=== PATIENT | male | born 1995 | race American Indian/Alaskan Native ===

== ENCOUNTER 2019-03-10 18:55 | Emergency (ER) | payer OTHER ==
[2019-03-10 21:13] VITALS: BP 110/50
--- NOTE | 2019-03-10 23:59 | XRay Report ---
CLINICAL DATA: lower back pain TECHNICAL DATA: AP and lateral views lumbar spine. FINDINGS: The bone mineralization is normal. Vertebral body heights are normal. Intervertebral disc spaces are well maintained. Pedicles and spinous processes are normal in alignment. SI joints and sacrum are nor mal. IMPRESSION: Normal examination lumbar spine. Signer Name: Ramon Segura MD Signed: 03/10/2019 11:54 PM Workstation Name: [email or web address]
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
[2019-03-11] MEDS ORDERED: KETOROLAC 30 MG/1 ML INJ ONE (02:29)
[2019-03-11] MEDS ORDERED: KETOROLAC 30 MG/1 ML INJ IM ONE (02:32)
== END 2019-03-11 03:35 | disposition home or self-care (01) ==
LOC: ED 18:55
DX: S39.012A Strain of muscle, fascia and tendon of lower back, initial encounter (principal); F17.200 Nicotine dependence, unspecified, uncomplicated; F12.10 Cannabis abuse, uncomplicated; V49.59XA Passenger injured in collision with other motor vehicles in traffic accident, initial encounter; Y93.89 Activity, other specified; Y92.488 Other paved roadways as the place of occurrence of the external cause; Y99.8 Other external cause status
CPT/HCPCS: 72100; 96372; 99283; J1885

== ENCOUNTER 2020-01-24 05:48 | Emergency (ER) | payer SELFPAY ==
[2020-01-24 06:44] VITALS: BP 132/78
--- NOTE | 2020-01-24 08:32 | Emergency Department Report ---
ED ENT HPI - General Chief complaint: Sore Throat Stated complaint: THROAT HURTS/RO/PAIN IN LT EAR Time Seen by Provider: 01/24/20 07:51 Source: patient Mode of arrival: Ambulatory Limitations: No Limitations - History of Present Illness Initial comments: 24-year-old male with no significant past medical history presents to the ER today complaining of sore throat and left ear pain for 2 months. Patient states that he has not been seen by ENT nor any medical provider for his symptoms since it started. He reports increased pain with swallowing. He denies any rhinorrhea, nasal congestion, fever, chills or cough. He states he does suffer from seasonal allergies but currently not taking any medication. MD complaint: sore throat, ear pain -: month(s) (2) - Related Data Previous Rx's Medication Instructions Recorded Last Taken Type Menthol/Camphor [[place] 1 applicatio TP QID PRN #1 tube 03/11/19 Unknown Rx Ointment] Naproxen 500 mg PO BID PRN #30 tablet 03/11/19 Unknown Rx Clindamycin [Clindamycin CAP] 300 mg PO Q6H #40 capsule 01/24/20 Unknown Rx Loratadine/Pseudoephedrine 1 tab PO Q12H #20 tablet 01/24/20 Unknown Rx [Claritin-D 12HR] methylPREDNISolone [Medrol 4MG 4 mg PO DAILY #1 tab.ds.pk 01/24/20 Unknown Rx DOSEPAK (21 tabs)] Allergies Allergy/AdvReac Type Severity Reaction Status Date / Time No Known Allergies Allergy Verified 03/11/19 02:41 ED Dental HPI - General Chief complaint: Sore Throat Stated complaint: THROAT HURTS/RO/PAIN IN LT EAR Time Seen by Provider: 01/24/20 07:51 Source: patient Mode of arrival: Ambulatory Limitations: No Limitations - Related Data Previous Rx's Medication Instructions Recorded Last Taken Type Menthol/Camphor [[place] 1 applicatio TP QID PRN #1 tube 03/11/19 Unknown Rx Ointment] Naproxen 500 mg PO BID PRN #30 tablet 03/11/19 Unknown Rx Clindamycin [Clindamycin CAP] 300 mg PO Q6H #40 capsule 01/24/20 Unknown Rx Loratadine/Pseudoephedrine 1 tab PO Q12H #20 tablet 01/24/20 Unknown Rx [Claritin-D 12HR] methylPREDNISolone [Medrol 4MG 4 mg PO DAILY #1 tab.ds.pk 01/24/20 Unknown Rx DOSEPAK (21 tabs)] Allergies Allergy/AdvReac Type Severity Reaction Status Date / Time No Known Allergies Allergy Verified 03/11/19 02:41 ED Review of Systems ROS: Stated complaint: THROAT HURTS/RO/PAIN IN LT EAR Other details as noted in HPI Comment: All other systems reviewed and negative Constitutional: denies: chills, fever ENT: ear pain, throat pain Respiratory: denies: cough, orthopnea, shortness of breath, SOB with exertion, SOB at rest, wheezing Cardiovascular: denies: chest pain, palpitations Gastrointestinal: denies: abdominal pain, nausea, diarrhea Musculoskeletal: denies: back pain, joint swelling, arthralgia Skin: denies: rash, lesions Neurological: denies: headache, weakness, paresthesias Psychiatric: denies: anxiety, depression Hematological/Lymphatic: denies: easy bleeding, easy bruising ED Past Medical Hx - Past Medical History Previous Medical History?: No - Surgical History Past Surgical History?: No - Social History Smoking Status: Current Every Day Smoker Substance Use Type: None - Medications Home Medications: Home Medications Medication Instructions Recorded Confirmed Last Taken Type Menthol/Camphor [[place] 1 applicatio TP QID PRN #1 tube 03/11/19 Unknown Rx Ointment] Naproxen 500 mg PO BID PRN #30 tablet 03/11/19 Unknown Rx Clindamycin [Clindamycin CAP] 300 mg PO Q6H #40 capsule 01/24/20 Unknown Rx Loratadine/Pseudoephedrine 1 tab PO Q12H #20 tablet 01/24/20 Unknown Rx [Claritin-D 12HR] methylPREDNISolone [Medrol 4MG 4 mg PO DAILY #1 tab.ds.pk 01/24/20 Unknown Rx DOSEPAK (21 tabs)] ED Physical Exam - General Limitations: No Limitations General appearance: alert, in no apparent distress - Head Head exam: Present: atraumatic, normocephalic, normal inspection - Eye Eye exam: Present: normal appearance, PERRL, EOMI, scleral icterus Pupils: Present: normal accommodation - ENT ENT exam: Present: normal exam, mucous membranes moist, other (Posterior pharynx, as well as bilateral tonsils appear to be moderately erythematous, tonsils noted to have exudates bilaterally, and some ulcerations to him. No uvular deviation, no evidence of peritonsillar abscess; patient has no trismus or drooling; mild to moderate effusions noted behind both TMs but there is no erythema to the TMs, there is slight injection to the left TM; no perforation) - Neck Neck exam: Present: normal inspection, full ROM, lymphadenopathy (Bilateral anterior cervical adenopathy noted). Absent: meningismus - Respiratory Respiratory exam: Absent: respiratory distress - Cardiovascular Cardiovascular Exam: Present: regular rate - Back Exam Back exam: Present: full ROM - Neurological Exam Neurological exam: Present: alert, oriented X3, CN II-XII intact - Psychiatric Psychiatric exam: Present: normal affect, normal mood - Skin Skin exam: Present: intact ED Course Vital Signs 01/24/20 06:13 Temperature 98.5 F Pulse Rate 70 Respiratory 18 Rate Blood Pressure 132/78 O2 Sat by Pulse 100 Oximetry Critical care attestation.: If time is entered above; I have spent that time in minutes in the direct care of this critically ill patient, excluding procedure time. ED Disposition Clinical Impression: Exudative pharyngitis, Serous otitis media Disposition: TO HOME OR SELFCARE Is pt being admited?: No Does the pt Need Aspirin: No Condition: Stable Instructions: Pharyngitis (ED), Earache (ED) Additional Instructions: I recommend that you take antibiotics and steroids as prescribed. If your symptoms are not better after completion of the antibiotics it is important that you follow-up with ENT especially to evaluate your tonsils as you may need a biopsy. ENT referral will be given on your discharge instructions. A PCP referral also be given to you on your discharge instruction. Return to the ER if your symptoms changes or worsens in any way. Prescriptions: Loratadine/Pseudoephedrine [Claritin-D 12HR] 1 tab PO Q12H #20 tablet Clindamycin [Clindamycin CAP] 300 mg PO Q6H #40 capsule methylPREDNISolone [Medrol 4MG DOSEPAK (21 tabs)] 4 mg PO DAILY #1 tab.ds.pk Referrals: NATALEE YANEZ MD [Staff Physician] - 3-5 Days JUNE MEJIA MD [Staff Physician] - 3-5 Days JOSÉ MIGUEL POLLOCK MD [Staff Physician] - 3-5 Days Time of Disposition: 08:36
[2020-01-24] MEDS ORDERED: dexAMETHasone 20 MG/5 ML VIAL IM ONE (08:38)
== END 2020-01-24 08:48 | disposition home or self-care (01) ==
LOC: ED 05:48
DX: J02.9 Acute pharyngitis, unspecified (principal); H65.90 Unspecified nonsuppurative otitis media, unspecified ear; F17.200 Nicotine dependence, unspecified, uncomplicated; Z79.899 Other long term (current) drug therapy
CPT/HCPCS: 99282

== ENCOUNTER 2020-02-18 16:07 | Emergency (ER) | payer SELFPAY ==
--- NOTE | 2020-02-18 16:27 | Emergency Department Report ---
Chief Complaint: Urogenital-Male Stated Complaint: PENILE PAIN Time Seen by Provider: 02/18/20 16:23 - HPI History of Present Illness: pt is a 24 yo male who presents to the ED with c/o rash on the penis that began 2-3 days ago. he denies any dysuria, penile discharge, abd pain, n/v/d, fever, hematuria, testicular pain or edema. pmhx none. no allergies to meds. Initial vitals with elevated heart rate which improved upon repeat On exam: Non toxic appearing, no acute distress atraumatic, normocephalic normal appearance of the eyes, EOMI, no periorbital edema or ecchymosis moist mucus membranes no respiratory distress, no accessory muscle use : Data Operations ManagerMyesha RN, there are small vesicles/shallow ulcerations present to the shaft of the penis, no drainage, normal testicular lie, no testicular tenderness palpation, no scrotal edema, normal cremasteric reflex A&O x4, no focal neuro deficit skin is warm, dry, intact Advised patient rash is concerning for herpes virus Advised patient that he would need to follow-up with the clinic or the health department in order to have a full STD panel This hospital facility does not do STD panel or non emergent treatment for STD he denies any dysuria, penile discharge, abd pain, n/v/d, fever, hematuria, test icular pain or edema. Patient given resources Discussed very strict return precautions Advised patient Please follow-up with the health department or clinic for full STD panel. Please have any partner tested and treated as well. Avoid sexual intercourse. Return to emergency room for any new or worsening symptoms. Medical screening examination performed and there is no threat to life or limb at this time Advised patient that herpes virus is lifelong and is very contagious and discussed not to engage in sexual intercourse MSE screening note: Focused history and physical exam performed. ED Medical Decision Making - Lab Data Vital Signs 02/18/20 02/18/20 16:23 16:32 Temperature 98.3 F Pulse Rate 123 H 98 H Respiratory 18 Rate Blood Pressure 132/80 [Right] O2 Sat by Pulse 98 Oximetry ED Disposition for MSE Clinical Impression: Penile rash Disposition: Z- MED SCREENING EXAM-LEFT Is pt being admited?: No Does the pt Need Aspirin: No Condition: Stable Instructions: Genital Herpes Additional Instructions: Please follow-up with the health department or clinic for full STD panel. Please have any partner tested and treated as well. Avoid sexual intercourse. Return to emergency room for any new or worsening symptoms. walk in: [email or web address] Address: [address] [place] [address], [place] [address] Referrals: [facility] [Outside] - 2-3 Days Time of Disposition: 16:27 Print Language: CZECH
[2020-02-18 16:33] VITALS: BP 132/80
== END 2020-02-18 16:33 | disposition left against medical advice (07) ==
LOC: ED 16:07
DX: N48.89 Other specified disorders of penis (principal); Z53.21 Procedure and treatment not carried out due to patient leaving prior to being seen by health care provider